=== PATIENT | female | born 1950 | race Caucasian/White ===

== ENCOUNTER 2020-09-02 09:03 | Emergency (ER) | payer MEDICARE, OTHER, SELFPAY ==
--- NOTE | ~2020-09-02 | CT_ITS ---
EXAMINATION: CT abdomen pelvis wo con EXAM DATE: 09/02/2020 10:10 INDICATION: Right upper quadrant pain after fall. Right rib pain. Fall. Initial encounter. TECHNIQUE: Spiral CT of the abdomen and pelvis was performed without contrast. Axial, coronal and sag ittal images were reviewed. The dose-length product (DLP) for this examination was 384.83 mGy-cm. T he exposure was tailored according to patient size (auto mA exposure control), and iterative reconstr uction (ASIR) was used as additional dose reduction technique. There is no prior study for compariso n. FINDINGS: There is no solid organ laceration. There is no nephrolithiasis or hydronephrosis. The ut erus is not identified and has likely been surgically resected. The bladder is unremarkable. The li mario, spleen, adrenal glands and pancreas are unremarkable. Gallbladder is unremarkable. No biliary obstruction. There is no retroperitoneal or pelvic lymphadenopathy. There is mild scattered arteri osclerotic disease. The appendix is not positively visualized. There is no pericecal inflammatory change to suggest appe ndicitis. There is moderate sigmoid colonic diverticulosis. There is no adjacent inflammatory change to suggest diverticulitis. The stomach and small bowel are unremarkable. There is expected amount o f colonic stool. No free intraperitoneal gas. The heart is normal in size. There are no pericard ial or pleural effusions. There is a bilobulated 3 x 5 mm right lower lobe nodule. Statistically mos t likely noncalcified granuloma. There are no acute fractures identified. IMPRESSION: 1. No acute abdomen pelvis findings. 2. Moderate sigmoid diverticulosis. 3. Right lower lobe nodule statistically most likely granuloma; consider one-year follow-up low-dose chest CT. Reviewed, dictated and finalized at location B. [facility] [employer] [employer] IMPRESSION: 1. No acute abdomen pelvis findings. 2. Moderate sigmoid diverticulosis. 3. Right lower lobe nodule statistically most likely granuloma; consider one-y ear follow-up low-dose chest CT.
[2020-09-02 09:09] VITALS: BP 154/86; PULSE 81; RESP 18; TEMP 36.6; O2SAT 100
[2020-09-02 09:51] LABS: Basophils Absolute Auto 0.1 K/mm3 (0.0-0.1); Basophils Percent Auto 1.4 % (0.2-1.2); Eosinophils Absolute Auto 0.2 K/mm3 (0-0.3); Eosinophils Percent Auto 4.7 % (0-4.4); Hematocrit 43.3 % (37.0-47.0); Hemoglobin 14.2 g/dL (12.0-15.0); Immature Granulocyte Absolute 0.03 K/mm3 (0.00-0.031); Immature Granulocyte Percent A 0.6 % (0-0.5); Lymphocytes Absolute Auto 1.32 K/mm3 (0.9-3.2); Lymphocytes Percent Auto 26.9 % (18.3-44.2); Mean Corpuscular HGB Conc 32.8 g/dl (32-36); Mean Corpuscular Hemoglobin 27.8 pg (26-34); Mean Corpuscular Volume 84.7 fl (80-100); Mean Platelet Volume 9.2 fl (7.4-10.4); Monocytes Absolute Auto 0.4 K/mm3 (0.1-0.6); Monocytes Percent Auto 7.1 % (2.6-8.5); Neutrophils Absolute Auto 2.9 K/mm3 (1.3-6.7); Neutrophils Percent Auto 59.3 % (45.5-73.1); Platelet Count Result 257 k/mm3 (150-375); Red Blood Count 5.11 M/mm3 (4.2-5.4); Red Cell Distribution Width 12.8 % (11.5-14.5); White Blood Count 4.9 K/mm3 (4.5-10.0)
[2020-09-02 09:59] LABS: INR 0.9; Prothrombin Time 13.1 Seconds (11.1-14.7)
[2020-09-02 10:01] LABS: Alanine Aminotransferase 26 U/L (4-35); Alkaline Phosphatase 68 U/L (38-126); Anion Gap 2 mmol/L (8-16); Aspartate Amino Transferase 34 U/L (14-36); Bilirubin,Total 0.7 mg/dL (0.2-1.3); Blood Urea Nitrogen 12 mg/dL (7-17); Calcium 9.3 mg/dL (8.4-10.2); Carbon Dioxide 33 mmol/L (22-30); Chloride 106 mmol/L (98-107); Estimated CRCL calculation 57 ml/min; Estimated Glomerular Filt Rate > 60; Glucose 113 mg/dL (65-105); Partial Thromboplastin Time 31.6 SECONDS (22.3-36.8); Potassium 4.2 mmol/L (3.4-5.0); Sodium 141 mmol/L (137-145)
--- NOTE | 2020-09-02 10:48 | ED.GENADULT ---
HPI - General Adult General Chief complaint: Fall Stated complaint: rib pain Time Seen by Provider: 09/02/20 09:10 Source: patient Mode of arrival: ambulatory Limitations: no limitations History of Present Illness HPI narrative: Patient is a 70-year-old female who presents for right anterior rib abdominal pain after slipping on the ice today and striking the region patient notes that her elbow and into her side has since been having aching pain worse with breathing activity and movement patient denies other injuries or complaints presents in no distress has not had anything for her symptoms Related Data Allergies Allergy/AdvReac Type Severity Reaction Status Date / Time iodine Allergy Mild Hives Verified 09/02/20 09:12 Contrast Media Allergy Mild Hives Uncoded 09/02/20 09:12 Review of Systems Review of Systems: All systems reviewed & are unremarkable except as noted in HPI and below PMFSH Past Medical History Medical History (Updated 09/02/20 @ 10:51 by Dao Medina PA-C) Hypothyroidism Sialadenitis Surgical History Surgical History (Updated 09/02/20 @ 10:50 by Dao Medina PA-C) H/O section H/O resection of liver H/O thyroidectomy Social History Social History (Updated 09/02/20 @ 10:49 by Dao Medina PA-C) Smoking status: Never smoker Exam Narrative: Exam Narrative: GENERAL: Well-appearing, well-nourished, and in no acute distress. HEAD: Normocephalic, atraumatic. EYES: PERRLA and EOMI. ENT: Nares clear, no rhinorrhea or epistaxis. Mucous membranes moist. CHEST: Clear to auscultation. No respiratory distress. No wheezes rales or rhonchi. Right anterior lower rib tenderness no deformity noted HEART: Regular rate and rhythm. No murmur heard. Normal peripheral pulses. ABDOMEN: Soft, right upper quadrant abdominal tenderness no rebound or guarding, nondistended, normal active bowel sounds. EXTREMITIES: Normal range of motion. No edema. SKIN: Warm, dry, no rash. NEURO: No focal deficits. Alert and oriented x3. PSYCH: Normal mood and affect. Course Course Emergency Course: Patient in the room no distress evaluated will be discharged home for further evaluation on outpatient basis patient agrees with this plan hemodynamically stable no distress no high risk changes in the blood work or imaging ABCs and vital signs intact and stable Vital Signs Vital signs: Vital Signs Temperature 97.8 F 09/02/20 09:09 Pulse Rate 81 09/02/20 09:09 Respiratory Rate 18 09/02/20 09:09 Blood Pressure 154/86 H 09/02/20 09:09 Pulse Oximetry 100 09/02/20 09:09 Temperature 97.8 F 09/02/20 09:09 Pulse Rate 81 09/02/20 09:09 Respiratory Rate 18 09/02/20 09:09 Blood Pressure 154/86 H 09/02/20 09:09 Pulse Oximetry 100 09/02/20 09:09 Medical Decision Making MDM Narrative Medical decision making narrative: Patients injury or pain is consistent with musculoskeletal etiology. No signs of neurological or vascular compromise on exam. Compartments and tisues are soft without signs of compartment syndrome. Pain is felt appropriate for further evaluation on an outpatient basis. Vital Signs Vital Signs: Vital Signs Temperature 97.8 F 09/02/20 09:09 Pulse Rate 81 09/02/20 09:09 Respiratory Rate 18 09/02/20 09:09 Blood Pressure 154/86 H 09/02/20 09:09 Pulse Oximetry 100 09/02/20 09:09 Temperature 97.8 F 09/02/20 09:09 Pulse Rate 81 09/02/20 09:09 Respiratory Rate 18 09/02/20 09:09 Blood Pressure 154/86 H 09/02/20 09:09 Pulse Oximetry 100 09/02/20 09:09 Lab Data Result diagrams: 09/02/20 09:43 09/02/20 09:43 Labs: Lab Results 09/02/20 09/02/20 09/02/20 Range/Units 09:43 09:43 09:43 WBC 4.9 (4.5-10.0) K/mm3 RBC 5.11 (4.2-5.4) M/mm3 Hgb 14.2 (12.0-15.0) g/dL Hct 43.3 (37.0-47.0) % MCV 84.7 (80-100) fl MCH 27.8 (26-34) pg MCHC 32.8 (32-36) g/dl RDW 12.8 (11.5-14
== END 2020-09-02 11:04 | disposition home or self-care (01) ==
PROVIDERS: Emergency Medicine Emergency Medical Services; Emergency Provider Emergency Medicine
DX: R07.81 Pleurodynia (principal); R10.11 Right upper quadrant pain; R91.1 Solitary pulmonary nodule; K57.30 Diverticulosis of large intestine without perforation or abscess without bleeding; E03.9 Hypothyroidism, unspecified; W00.0XXA Fall on same level due to ice and snow, initial encounter
CPT/HCPCS: 36415; 74176; 80053; 85025; 85610; 85730; 99284